=== PATIENT | male | born 1935 | race Caucasian/White ===

== ENCOUNTER 2016-04-23 07:01 | Emergency (ER) | payer MEDICARE ==
[~2016-04-23] VITALS: Ht 175.3 cm; Wt 88.6 kg
[2016-04-23] MEDS ORDERED: ELIQUIS5 MG PO (07:24)
[2016-04-23] MEDS ORDERED: LIPITOR80 MG PO (07:24)
[2016-04-23] MEDS ORDERED: FISH OIL1000 MG PO (07:24)
[2016-04-23] MEDS ORDERED: AMOXICILLIN500 MG PO (09:10)
[2016-04-23 09:15] VITALS: BP 148/85
[2016-04-24] MEDS ORDERED: ASPIRIN EC81 MG PO (10:34)
== END 2016-04-23 09:44 | disposition home or self-care (01) ==
LOC: ED 07:01
DX: R04.0 Epistaxis (principal)

== ENCOUNTER 2016-04-24 10:15 | Emergency (ER) | payer MEDICARE ==
[~2016-04-24] VITALS: Ht 175.3 cm; Wt 86.3 kg
[~2016-04-24 10:15] MED LIST: AMOXICILLIN500 MG PO; ELIQUIS5 MG PO; FISH OIL1000 MG PO; LIPITOR80 MG PO
[2016-04-24] MEDS ORDERED: ASPIRIN EC81 MG PO (10:34)
[2016-04-24 11:15] VITALS: BP 139/74
== END 2016-04-24 11:16 | disposition home or self-care (01) ==
LOC: ED 10:15
DX: Z48.00 Encounter for change or removal of nonsurgical wound dressing (principal)

== ENCOUNTER 2023-03-30 11:34 | Emergency (ER) | payer MEDICARE ==
[~2023-03-30] VITALS: Ht 175.3 cm; Wt 80.0 kg
[~2023-03-30 11:34] MED LIST changes: +ASPIRIN EC81 MG PO; +FINASTERIDE5 MG PO; +FUROSEMIDE20 MG PO; +LASIX 40 MG TAB40 MG PO; +LIPITOR40 M1 PO; -LIPITOR80 MG PO; +ZINC50 M1 PO
[2023-03-30 12:10] LABS: BASO% 0.7 % (0-3); EOS% 2.7 % (0-8); HEMATOCRIT 41.6 % (39.0-50.0); IMMATURE GRANULOCYTES 0.2 % (0.0-5.0); LYMPH% 10.4 % (15-41); MEAN CELL VOLUME 96.7 fL CALC (80.0-100.0); MEAN CORPUSCULAR HGB 30.2 pG CALC (26.0-32.0); MEAN CORPUSCULAR HGB CONC 31.3 g/dL CAL (32.0-36.0); MONO% 13.4 % (2-13); NEUT# 4.27 thou/uL (1.82-7.42); NEUT% 72.6 % (42-76); RED BLOOD COUNT 4.3 mill/uL (4.70-6.10); RED CELL DISTRI WIDTH 14.7 % (11.5-15.5)
[2023-03-30 12:35] LABS: ALBUMIN 4.3 g/dL (3.2-5.0); ALKALINE PHOSPHATASE 79 u/l (38-126); ANION GAP 8 (6-22 (CALC)); BUN 17 mg/dL (8-23); BUN/CREATININE RATIO 20 (12-20 (CALC)); CARBON DIOXIDE 33 mmol/l (22-30); CHLORIDE 103 mmol/l (95-108); CREATININE 0.9 mg/dL (0.7-1.3); GFR FOR AFR.AMER. > 60 ML/MIN (>=60 (CALC)); GFR OTHER RACES > 60 ML/MIN (>=60 (CALC)); SGOT/AST 39 u/l (19-48); SODIUM 140 mmol/l (137-146); TOTAL PROTEIN 7.7 g/dL (6.3-8.2)
[2023-03-30 12:36] LABS: BILIRUBIN, TOTAL 1.3 mg/dL (0.2-1.3)
[2023-03-30 12:42] LABS: ACT PARTIAL THROMBO TIME 33.7 SECONDS (20.0-32.5); INTERNATIONAL NORMALIZED RATIO 1.3 RATIO (0.7-1.3); PROTHROMBIN TIME 12.1 SECONDS (9.0-12.5)
[2023-03-30 13:27] LABS: URINE BILIRUBIN - DIPSTICK Negative (NEGATIVE); URINE BLOOD DIPSTICK Small (NEGATIVE); URINE GLUCOSE - DIPSTICK Negative (NEGATIVE); URINE KETONE Negative (NEGATIVE); URINE LEUK ESTERASE Negative (NEGATIVE); URINE NITRITE - DIPSTICK Negative (Negative); URINE PROTEIN - DIPSTICK Negative (NEG-TRACE); URINE UROBILINOGEN - DIPSTICK 0.2 E.U./dL (0.2)
[2023-03-30 13:28] LABS: URINE COLOR Yellow
[2023-03-30 13:35] LABS: URINE CASTS FEW lpf (NONE-RARE); URINE RBC 0-2 RBC/hpf (0-5); URINE SQUAMOUS EPITHELIAL CELL RARE EPI/hpf (0-FEW); URINE WBC 0-2 WBC/hpf (0-5)
[2023-03-30 16:38] VITALS: BP 161/81
== END 2023-03-30 16:40 ==
LOC: ED 11:34
PROVIDERS: Emergency Medicine
DX: T82.190A Other mechanical complication of cardiac electrode, initial encounter (principal); I10 Essential (primary) hypertension; Y83.1 Surgical operation with implant of artificial internal device as the cause of abnormal reaction of the patient, or of later complication, without mention of misadventure at the time of the procedure; Z86.73 Personal history of transient ischemic attack (TIA), and cerebral infarction without residual deficits